=== PATIENT | female | born 1935 | race Caucasian/White ===

== ENCOUNTER 2018-04-05 07:36 | Observation (INO) ==
--- NOTE | 2018-04-05 07:56 | Emergency Department Note ---
Disposition Clinical Impression: Open wound Ankle fracture Qualifiers: Encounter type: initial encounter Fracture type: closed Laterality: right Qualified Code(s): S82.891A - Other fracture of right lower leg, initial encounter for closed fracture Knee effusion Qualifiers: Laterality: left Qualified Code(s): M25.462 - Effusion, left knee Disposition: Admitted As Inpatient Condition: Good Lower Extremity Injury HPI - General Chief Complaint: ED Extremity Injury, Lower Stated Complaint: ankle pain Time Seen by Provider: 04/05/18 07:41 Source: patient, EMS Limitations: no limitations, physical limitation Nursing Notes Reviewed: Yes Vital Signs Reviewed: Yes - History of Present Illness HPI Narrative: 82 year old female presents with fall evaluation. Patient stated she was tripped and fell from standing position yesterday afternoon in basement. Patient had to sit on the stairs for 10 minutes. Then she crawled back to upstairs. Patient stated she noticed pain in left knee and right ankle. She could only partially put weight on right leg. Patient denied hit her head. No loss of consciousness. Denied dizziness or other symptoms before the accident. Patient hit her right palacio on Tuesday. Patient followed up with her primary care physician for the wound. No complain of the wound. Pt Subjective Complaint: ankle injury Injury location: Left knee, Right ankle Onset (ago): day(s) (1) Mechanism of Injury: fall Context: fall Place: home Pain Severity: moderate Pain Scale: 6 Improves with: nothing Worsens with: weight bearing, movement Associated symptoms: Reports: able to partially bear weight - Related Data Home Medications Medication Instructions Recorded Confirmed Calcium Carbonate/Vitamin D3 1 tab PO DAILY 04/05/18 04/05/18 [Calcium 600-Vit D3 800 Tablet] Metoprolol [Lopressor] 25 mg PO BID 04/05/18 04/05/18 Multivit,Th Iron,Other Min 1 tab PO DAILY 04/05/18 04/05/18 [Therems-M] Raloxifene [Evista] 60 mg PO DAILY 04/05/18 04/05/18 Allergies Allergy/AdvReac Type Severity Reaction Status Date / Time No Known Allergies Allergy Verified 04/05/18 07:43 Constitutional: Denies: fever, chills, weakness, weight change Eyes: Denies: eye pain, eye discharge, vision change ENT ED: Denies: ear pain, throat pain, dental pain, hearing loss, epistaxis, congestion, dysphagia Cardiovascular: Denies: chest pain, palpitations, dyspnea on exertion, edema, syncope Respiratory: Denies: cough, dyspnea, wheezes, hemoptysis, stridor Gastrointestinal: Denies: abdominal pain, nausea, vomiting, diarrhea, constipation, hematemesis, melena, hematochezia Genitourinary: Denies: dysuria, frequency, hematuria, discharge Musculoskeletal: Reports: arthralgia (left knee and right ankle pain). Denies: back pain, neck pain, myalgia Integumentary: Denies: rash, abrasion, lesions Neurological: Denies: headache, weakness, numbness, paresthesias, confusion, abnormal gait, vertigo Psychiatric: Denies: anxiety, depression, suicidal thoughts, homicidal thoughts , auditory hallucinations, visual hallucinations Endocrine: Denies: fatigue Hematological/Lymphatic: Denies: easy bleeding, easy bruising Allergic/Immunologic: Denies: facial swelling, urticaria Past Medical History - Past Medical History Medical history: Reports: cancer, osteoporosis Psychiatric history: Reports: no psych history SENIOR PREMIUM AUDITOR history: Reports: no SENIOR PREMIUM AUDITOR history - Social History Smoking Status: Never smoker Smokeless Tobacco Status: No Alcohol use: Reports: none Drug use: Reports: none Physical Exam - General Limitations: physical limitation General appearance: alert, in no apparent distress - Head Head exam: atraumatic, normocephalic, normal inspection - Eye Eye exam: Present: normal appearance, PERRL, EOMI - ENT ENT exam: normal exam, normal oropharynx, mucous membranes moist - Neck Neck exam: Present: normal inspection, full ROM, trachea midline - Chest Chest inspection: Present: normal inspection, symmetric chest wall rise. Absent : tenderness - Respiratory Respiratory exam: Present: normal lung sounds bilaterally. Absent: respiratory distress, wheezes - Cardiovascular Cardiovascular exam: Present: regular rate, normal rhythm, normal heart sounds - Abdominal Exam Abdominal exam: Present: soft, Non-Tender. Absent: tenderness, distention, guarding, rebound, rigidity - Expanded Lower Extremity Exam Knee exam: Present: full ROM, tenderness, swelling. Absent: normal inspection ( left knee mild swelling, tender to palpation in anterior aspect, no limited of ROM) Ankle exam: Present: full ROM, tenderness, swelling. Absent: normal inspection (right ankle mild swelling in lateral side, tender to palpation, no limited of ROM ) Foot/toe exam: Present: normal inspection, full ROM. Absent: tenderness, swelling - Back Exam Back exam: Present: normal inspection, full ROM. Absent: tenderness - Neurological Exam Neurological exam: Present: alert, oriented X3 - Psychiatric Psychiatric exam: Present: normal affect, normal mood - Skin Skin exam: Present: warm, dry, normal color. Absent: intact (a 3x6 cm abrasion on right palacio (from tuesday), no active bleeding, no signs of infection) Course Vital Signs Temperature 97.8 F 04/05/18 07:43 Pulse Rate 87 04/05/18 07:43 Respiratory Rate 15 04/05/18 07:43 Blood Pressure 116/79 04/05/18 07:43 O2 Sat by Pulse Oximetry 100 04/05/18 07:43 Temperature 98.4 F 04/05/18 11:50 Pulse Rate 82 04/05/18 11:50 Respiratory Rate 16 04/05/18 11:50 Blood Pressure 124/74 04/05/18 11:50 O2 Sat by Pulse Oximetry 100 04/05/18 11:50 Oxygen Delivery Oxygen Delivery Room Air Procedures - Orthopedic Splinting/Casting Injury #1 Side: right Lower Extremity Injury Location: ankle Lower Extremity Immobilizer: stirrup splint Extremity Injury, Lower - MDM Narrative Medical decision making narrative: 82 year old female presents with right ankle and left knee pain after fall. Partial weight bearing on right foot. Physical exam: right ankle swelling, tender to palpation on lateral aspect, no limited of ROM; left knee mild swelling, tender to palpation, no limited of ROM, a 3x6 cm abrasion on right palacio. no active bleeding, no purulent drainage. xray: right ankle: tiny fracture in lateral malleolus, left knee: no fracture, mild effusion. Impression : ankle fracture, knee effusion, open wound. Pt will be discharged home with splint, follow up with Orthopedics Dr. Luu and wound clinic 09:40 am pt stated she lives along. She can't put weight on both legs. Discussed the case with Dr. Antonio. He recommended to admit pt for social scientist. 09:45 page hospitalist and podiatry. Spoke with hospitalist Dr. Blake . Pt is accepted. 10:[address] Luu in the phone. Dr. Luu will see the patient in the floor. Suggest an extra xray of right foot. - Differential Diagnosis Likely: sprain/strain, fracture - Lab Data Result diagrams: 04/05/18 09:48 04/05/18 09:48 Lab Results 04/05/18 04/05/18 Range/Units 09:48 09:48 WBC 6.0 (4.3-11.1) K/mcL RBC 4.17 (3.82-4.97) M/mcL Hgb 13.4 (11.5-15.4) g/dL Hct 40.1 (35.3-44.9) % MCV 96.2 (83.0-100.0) fL MCH 32.1 (28.0-33.3) pg MCHC 33.4 (31.6-35.5) g/dL RDW 13.1 (11.5-14.5) % Plt Count 197 (140-400) K/mcL MPV 9.8 (9.4-12.4) fL Immature Gran % 0.3 (0-4) % Seg Neutrophils % 75.6 % Lymphocytes % 14.3 % Monocytes % 9.0 % Eosinophils % 0.5 % Basophils % 0.3 % Neutrophils # 4.5 (1.6-8.9) K/mcL Lymphocytes # 0.9 (0.6-4.6) K/mcL Monocytes # 0.5 (0.0-1.3) K/mcL Eosinophils # 0.0 (0.0-0.6) K/mcL Basophils # 0.0 (0.0-0.2) K/mcL Sodium 138 (136-145) mEq/L Potassium 3.5 (3.5-5.1) mEq/L Chloride 105 (98-107) mEq/L Carbon Dioxide 24 (23-29) mEq/L BUN 14 (8-23) mg/dL Creatinine 0.68 (0.60-1.20) mg/dL Est GFR ( Amer) > 60 (> 60) Est GFR (Non-Af Amer) > 60 (> 60) BUN/Creatinine Ratio 21 (6-26) Glucose 104 (70-105) mg/dL Calculated Osmolality 287 (280-300) Calcium 9.0 (8.6-10.3) mg/dL Total Bilirubin 2.1 H (0.3-1.0) mg/dL AST 17 (13-39) Units/L ALT 11 (7-52) Units/L Alkaline Phosphatase 51 (34-104) Units/L Serum Total Protein 6.4 (6.4-8.9) g/dL Albumin 3.8 (3.5-5.7) g/dL Globulin 2.6 (2.4-3.5) g/dL Albumin/Globulin Ratio 1.5 (1.1-2.2) - Radiology Data Radiology results reviewed: Yes I reviewed the patient's radiology results.
[2018-04-05 10:03] LABS: Basophils % 0.3 %; Eosinophils % 0.5 %; Hematocrit 40.1 % (35.3-44.9); Hemoglobin 13.4 g/dL (11.5-15.4); Immature Granulocytes % 0.3 % (0-4); Lymphocytes # 0.9 K/mcL (0.6-4.6); Lymphocytes % 14.3 %; Mean Corpuscular HGB Conc 33.4 g/dL (31.6-35.5); Mean Corpuscular Hemoglobin 32.1 pg (28.0-33.3); Mean Corpuscular Volume 96.2 fL (83.0-100.0); Mean Platelet Volume 9.8 fL (9.4-12.4); Monocytes # 0.5 K/mcL (0.0-1.3); Neutrophils # 4.5 K/mcL (1.6-8.9); Platelet Count 197 K/mcL (140-400); Red Blood Count 4.17 M/mcL (3.82-4.97); Red Cell Distribution Width 13.1 % (11.5-14.5); Segmented Neutrophils % 75.6 %
[2018-04-05 10:23] LABS: Alanine Aminotransferase 11 Units/L (7-52); Albumin 3.8 g/dL (3.5-5.7); Albumin/Globulin Ratio 1.5 (1.1-2.2); Alkaline Phosphatase 51 Units/L (34-104); Aspartate Amino Transferase 17 Units/L (13-39); BUN/Creatinine Ratio 21 (6-26); Bilirubin,Total 2.1 mg/dL (0.3-1.0); Blood Urea Nitrogen 14 mg/dL (8-23); Carbon Dioxide 24 mEq/L (23-29); Chloride 105 mEq/L (98-107); Globulin 2.6 g/dL (2.4-3.5); Glucose 104 mg/dL (70-105); Osmolality,Calculated 287 (280-300); Potassium 3.5 mEq/L (3.5-5.1); Sodium 138 mEq/L (136-145); Total Protein 6.4 g/dL (6.4-8.9); eGFR For Non-African Americans > 60 (> 60)
[2018-04-05] MEDS ORDERED: Ibuprofen 600 MG TABLET PO ONE (10:36)
[2018-04-05] MEDS ORDERED: Naloxone 0.4 MG/ML INJ IVP PRN (12:03)
--- NOTE | 2018-04-05 12:39 | Internal Med History&Physical ---
Date of Encounter: 04/05/18 Time of Encounter: 11:00 Internal Medicine - H&P: HPI Chief complaint: Fall Admitted From: Home Plans for Post Hospital Care: Home History of present illness: Ms. Escobar is a 82 year old female present to ER for fall and right ankle and left knee pain. Past medical history is significant for breast cancer S/P surgery, colon cancer S/P surgery. Patient has mechanical fall yesterday afternoon around 4 PM. Denies loss of consciousness. Denies neck or head injury. Patient sit on her legs and complaint of right ankle pain and left knee pain. Denies other injury. Patient had right lower leg laceration on Tuesday which was managed by her PCP. In the emergency room, x-ray shows a right ankle fracture. Podiatry was counseled. Patient lives alone and cannot take care of herself at home. Patient was admitted for frequent fall, right ankle fracture. Past Med Surg Social Fam HX - Past Medical History Medical history: cancer, osteoporosis Additional medical history: breast CA, colon CA Psychiatric history: no psych history - Past Surgical History Surgical History: colectomy Additional surgical history: L mastectomy, foot surgery (torn tendon in arch) - Social History Smoking Status: Never smoker Smokeless Tobacco Status: No Alcohol use: none Drug use: none - Family History Father Living Status: Hx Family Cardiac Disorders: Yes ([place]) Mother Hx Family Neurologic Disorders: Yes (CVA x2) Hx Family Medical Disorders: Yes (bowel obstruction) Internal Medicine - H&P: Meds Calcium Carbonate/Vitamin D3 [Calcium 600-Vit D3 800 Tablet] 1 tab PO DAILY [History] Metoprolol [Lopressor] 25 mg PO BID 04/05/18 [History] Multivit,Th Iron,Other Min [Therems-M] 1 tab PO DAILY 04/05/18 [History] Raloxifene [Evista] 60 mg PO DAILY 04/05/18 [History] 3 Allergy/AdvReac Type Severity Reaction Status Date / Time No Known Allergies Allergy Verified 04/05/18 07:43 All Systems PM: A 10-system review of systems was performed and is negative for pertinent findings except as documented above in the HPI. - Constitutional Vitals: Temp Pulse Resp BP Pulse Ox 98.4 F 82 16 124/74 100 04/05/18 11:50 04/05/18 11:50 04/05/18 11:50 04/05/18 11:50 04/05/18 11:50 General appearance: Present: A&O X 3, no acute distress, answers questions appropriately - Head Head exam: Present: atraumatic, normocephalic - Eye Eye exam: Present: PERRL, conjuntiva pink, sclera anicteric Pupils: Present: PERRL - Neck Neck exam general surgery: Present: supple, trachea midline. Absent: lymphadenopathy - Respiratory Respiratory exam: Present: CTAB. Absent: accessory muscle use, rales, rhonchi, wheezes - Cardiovascular Cardiovascular exam: Present: RRR, +S1, +S2. Absent: diastolic murmur, gallop, rubs, systolic murmur - GI/Abdominal GI/Abdominal exam: Present: normal bowel sounds, soft, no peritoneal signs. Absent: distended, tenderness - Extremities Exam Extremities exam: Present: warm, radial pulses palpable and symmetrical. Absent : calf tenderness, cyanotic, pedal edema Additional comments: Mild left knee tenderness, without swelling. Right ankle was fixed with splint by ER. - Neurological Exam Neurological exam: Present: CN II-XII intact, oriented X3, no focal deficits. Absent: pronater drift, facial droop, speech deficit - Skin Skin exam: Present: dry, intact Internal Med - H&P Results - Labs CBC & Chem 7: 04/05/18 09:48 04/05/18 09:48 - Assessment and plan (1) Fall Current Visit: Yes Status: Acute Assessment and plan: Patient has frequent falls at home. Denies loss of consciousness or dizziness. Need PTOT evaluation. However, patient has right ankle fracture. Will consult podiatry first and determine PTOT evaluation after podiatry see patient. Qualifiers: Encounter type: initial encounter Qualified Code(s): W19.XXXA - Unspecified fall, initial encounter (2) DVT prophylaxis Current Visit: Yes Status: Acute Assessment and plan: Heparin subcutaneously (3) Ankle fracture Current Visit: Yes Status: Acute Assessment and plan: Splint placed by ER. Podiatry consult. Continue pain management as needed. Qualifiers: Encounter type: initial encounter Fracture type: closed Laterality: right Qualified Code(s): S82.891A - Other fracture of right lower leg, initial encounter for closed fracture (4) Knee effusion Current Visit: Yes Status: Acute Assessment and plan: Will order MRI to further evaluate left knee injury. Continue pain management. Qualifiers: Laterality: left Qualified Code(s): M25.462 - Effusion, left knee (5) Open wound Current Visit: Yes Status: Acute Assessment and plan: Patient has a laceration on right lower leg 2 days ago. Treated as outpatient by PCP. Will consult wound care for further management. - Time Spent With Patient Total time spent is greater than 50% in coordination of care (as documented) at patient's floor/unit and/or counseling patient: 30 minutes 25 - 35 minutes
--- NOTE | 2018-04-05 17:17 | Podiatry Consult Note ---
Date of Encounter: 04/05/18 Time of Encounter: 17:00 Assessment and Plan (1) Ankle fracture Status: Acute Assessment: Small fracture of the lateral talus Plan: Non operable at this time Will place patient to a short CAM boot May leave CORRIE for compression and protection May be protective weight bearing as tolerated to ankle Follow up in clinic with in 3 weeks or sooner if needed. Qualifiers: Encounter type: initial encounter Fracture type: closed Laterality: right Qualified Code(s): S82.891A - Other fracture of right lower leg, initial encounter for closed fracture (2) Open wound Status: Acute Assessment: Large skin tear of right palacio Plan: Stable- no appearance of infection. Scant bloody drainage. No probe to bone. There is slight ecchymosis surrounding wound. Edges cannot be approximated as skin is too thin. Will have to heal. No surrounding warmth, tenderness or edema. No odor Continue to cleanse as needed with saline or mild soap and water while at home Apply adaptic, 4x4 and kerlix for protection. Monitor for clinical signs of infection Call with any issues or concerns. History of Present Illness HPI: Ms. Escobar is a 82 year old female who has been consulted to us regarding her right ankle. Patient reports she fell yesterday around 3pm with her feet going under her and landing on her knees. Patient reports that her right ankle and left knee started to hurt overnight with the left knee being the worst. States she also fell on Tuesday scraping her palacio of the right leg. States she went to her PCP where she dressed it and told her stitches could not be placed and she did not need a follow up. Patient states she is worried about it "the skin is bruised and I think the bone may be bruised" Patient has a splint intact from ED to the RLE. Per imagining a small fracture of the lateral talus was noted. Patient denies any pain at this time. Past Med Surg Social Fam HX - Past Medical History Medical history: cancer, osteoporosis Additional medical history: breast CA, colon CA Psychiatric history: no psych history - Past Surgical History Surgical History: colectomy Additional surgical history: L mastectomy, foot surgery (torn tendon in arch) - Social History Smoking Status: Never smoker Smokeless Tobacco Status: No Alcohol use: none Drug use: none - Family History Father Living Status: Hx Family Cardiac Disorders: Yes ([place]) Mother Hx Family Neurologic Disorders: Yes (CVA x2) Hx Family Medical Disorders: Yes (bowel obstruction) Medications and Allergies Calcium Carbonate/Vitamin D3 [Calcium 600-Vit D3 800 Tablet] 1 tab PO DAILY [History] Metoprolol [Lopressor] 25 mg PO BID 04/05/18 [History] Multivit,Th Iron,Other Min [Therems-M] 1 tab PO DAILY 04/05/18 [History] Raloxifene [Evista] 60 mg PO DAILY 04/05/18 [History] Acetaminophen [Tylenol] 650 mg PO Q6HR PRN #30 tablet 04/08/18 [Rx] 3 Allergy/AdvReac Type Severity Reaction Status Date / Time No Known Allergies Allergy Verified 04/05/18 07:43 All Systems Reviewed: as per HPI Physical Exam - Constitutional Vitals: Temp Pulse Resp BP Pulse Ox 98.3 F 100 16 128/78 98 04/05/18 16:50 04/05/18 16:50 04/05/18 16:50 04/05/18 16:50 04/05/18 16:50 Exam: Awake, alert and oriented Pulses palpable DP/PT Warm toes to tibia Sensation intact with light touch to feet Movement intact - pain with ROM. Pain with inversion, eversion, plantar and dorsiflexion Slight edema surrounding the medial and lateral malleolus Slight ecchymosis noted No appearance of infection No obvious deformity noted- noted closed fx on imagining Large skin tear noted along anterior leg along tibia (right) [id number] Appears to be attempting scab Minimal surrounding erythema and ecchymosis No wamth No purulent drainage No appearance of infection Scant serosang drainage Results - Labs Result Diagrams: 04/06/18 05:43 04/08/18 00:55 Labs: Abnormal lab results Total Bilirubin 2.1 mg/dL (0.3-1.0) H 04/05/18 09:48 All other labs normal. Consult Discharge Plan - Plan Additional Instructions: WEIGHT BEARING TOLERATED TO RIGHT LEG WITH BOOT ON. CLEANSE THE ABRASION TO THE RIGHT LEG DAILY AND THEN REAPPLY DRESSING, SPLINT AND BOOT. PLEASE CALL YOUR PCP WITH ANY FEVER, CHILLS, DRAINAGE OR CONCERN. PLEASE ATTEND FOLLOW UP APPOINTMENTS SCHEDULED. PLEASE TAKE ALL MEDICATIONS PRESCRIBED. Referrals: Anthony Orozco CNP [Partnered Physician] - 04/10/18 8:45 am Solitario Lynn DO [Partnered Physician] - 04/11/18 11:00 am (Referral from Dr. Man - possible steroid injection left knee) Prescriptions: Acetaminophen [Tylenol] 650 mg PO Q6HR PRN #30 tablet PRN Reason: Mild Pain/Fever
[2018-04-05] MEDS: *HR* Heparin 5,000 UNIT/ML VIAL SQ SCH (18:00)
[2018-04-05] MEDS: Ketorolac 15 MG/ML VIAL IVP PRN (20:38)
[2018-04-06] MEDS: Acetaminophen 325 MG TABLET PO PRN (00:08)
[2018-04-06] MEDS ORDERED: *HR* HYDROcodone/Acet 7.5/325 mg TABLET PO ONE (01:03)
[2018-04-06] MEDS: *HR* Heparin 5,000 UNIT/ML VIAL SQ SCH ×2 (05:44→18:39)
[2018-04-06 06:51] LABS: Basophils % 0.4 %; Eosinophils # 0.1 K/mcL (0.0-0.6); Eosinophils % 1.1 %; Hematocrit 40.3 % (35.3-44.9); Hemoglobin 13.2 g/dL (11.5-15.4); Immature Granulocytes % 0.6 % (0-4); Lymphocytes # 0.9 K/mcL (0.6-4.6); Lymphocytes % 17.7 %; Mean Corpuscular HGB Conc 32.8 g/dL (31.6-35.5); Mean Corpuscular Hemoglobin 32.5 pg (28.0-33.3); Mean Corpuscular Volume 99.3 fL (83.0-100.0); Mean Platelet Volume 10.2 fL (9.4-12.4); Monocytes # 0.6 K/mcL (0.0-1.3); Monocytes % 10.8 %; Neutrophils # 3.7 K/mcL (1.6-8.9); Platelet Count 171 K/mcL (140-400); Red Blood Count 4.06 M/mcL (3.82-4.97); Red Cell Distribution Width 13.2 % (11.5-14.5); Segmented Neutrophils % 69.4 %
[2018-04-06 07:02] LABS: Alanine Aminotransferase 9 Units/L (7-52); Albumin 3.3 g/dL (3.5-5.7); Albumin/Globulin Ratio 1.2 (1.1-2.2); Alkaline Phosphatase 45 Units/L (34-104); Aspartate Amino Transferase 16 Units/L (13-39); BUN/Creatinine Ratio 20 (6-26); Bilirubin,Direct 0.4 mg/dL (0.0-0.2); Bilirubin,Indirect 1.9 mg/dL (0.0-1.2); Bilirubin,Total 2.3 mg/dL (0.3-1.0); Blood Urea Nitrogen 13 mg/dL (8-23); Calcium 8.2 mg/dL (8.6-10.3); Carbon Dioxide 23 mEq/L (23-29); Chloride 107 mEq/L (98-107); Globulin 2.7 g/dL (2.4-3.5); Glucose 96 mg/dL (70-105); Magnesium 1.9 mg/dL (1.6-2.6); Osmolality,Calculated 282 (280-300); Potassium 3.9 mEq/L (3.5-5.1); Sodium 136 mEq/L (136-145); eGFR For Non-African Americans > 60 (> 60)
--- NOTE | 2018-04-06 10:18 | Internal Med Progress Note ---
Hospitalist Progress Note - Encounter Date of Encounter: 04/06/18 Time of Encounter: 10:20 - Exam Vitals: Temp Pulse Resp BP Pulse Ox 98.5 F 90 16 110/73 95 04/06/18 07:26 04/06/18 07:26 04/06/18 07:26 04/06/18 07:26 04/06/18 07:26 Exam: Gen. NAD Head. Atraumtic. Normocephalic CVs. s1 s2 WNL Resp. CTAB GI. soft, +Bs Ext. Right ankle CAM boot in place Neuro. GCS 15 - Assessment and Plan (1) Ankle fracture Current Visit: Yes Status: Acute Assessment and Plan: Splint placed by ER. Seen by podiatry. CAM boot placed and recommend outpatient follow up as patient has a talus fracture that is inoperable at this time. Continue pain management as needed. Will obtain physical therapy assessment for discharge planning (2) Knee effusion Current Visit: Yes Status: Acute Assessment and Plan: Will order MRI to further evaluate left knee injury. Continue pain management. (3) Open wound Current Visit: Yes Status: Acute Assessment and Plan: Patient has a laceration on right lower leg 2 days ago. Treated as outpatient by PCP. Will consult wound care for further management. (4) Fall Current Visit: Yes Status: Acute Assessment and Plan: Patient has frequent falls at home. Denies loss of consciousness or dizziness. Need PTOT evaluation. However, patient has right ankle fracture. Will consult podiatry first and determine PTOT evaluation after podiatry see patient. (5) DVT prophylaxis Current Visit: Yes Status: Acute Assessment and Plan: Heparin subcutaneously - Time Spent with Patient Total time spent is greater than 50% in coordination of care (as documented) at patient's floor/unit and/or counseling patient: Internal Medicine: Result - Labs CBC & Chem 7: 04/06/18 05:43 04/06/18 05:43 Labs: Short CBC 04/06/18 Range/Units 05:43 WBC 5.3 (4.3-11.1) K/mcL Hgb 13.2 (11.5-15.4) g/dL Hct 40.3 (35.3-44.9) % Plt Count 171 (140-400) K/mcL Neutrophils # 3.7 (1.6-8.9) K/mcL BMP 04/06/18 05:43 Sodium 136 Potassium 3.9 Chloride 107 Carbon Dioxide 23 BUN 13 Creatinine 0.64 Glucose 96 Calcium 8.2 L Liver Function 04/06/18 Range/Units 05:43 Total Bilirubin 2.3 H (0.3-1.0) mg/dL Direct Bilirubin 0.4 H (0.0-0.2) mg/dL AST 16 (13-39) Units/L ALT 9 (7-52) Units/L Alkaline Phosphatase 45 (34-104) Units/L Albumin 3.3 L (3.5-5.7) g/dL - Impressions Impressions Knee MRI 04/05/18 12:02 IMPRESSION: 1. No acute osseous abnormality 2. 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 3. Large complex tear of the body and anterior horn of the lateral meniscus with extrusion of the body. 4. Intrasubstance signal in the body of the medial meniscus indeterminate for a tear given the chondrocalcinosis demonstrated on the concurrent radiographs. 5. Large joint effusion and large multilobular ganglion posterior to the joint space. D/ / Jarod eBrg MD / Jarod Berg MD Interpreting Provider: Jarod Berg MD Consult Discharge Plan - Plan Referrals: Kalyan Hinton DO [Primary Care Provider] - (1) Ankle fracture Qualifiers: Encounter type: initial encounter Fracture type: closed Laterality: right Qualified Code(s): S82.891A - Other fracture of right lower leg, initial encounter for closed fracture (2) Knee effusion Qualifiers: Laterality: left Qualified Code(s): M25.462 - Effusion, left knee (4) Fall Qualifiers: Encounter type: initial encounter Qualified Code(s): W19.XXXA - Unspecified fall, initial encounter
[2018-04-06] MEDS: Ketorolac 15 MG/ML VIAL IVP PRN (23:25)
[2018-04-07] MEDS: *HR* Heparin 5,000 UNIT/ML VIAL SQ SCH ×2 (05:26→17:30)
--- NOTE | 2018-04-07 10:37 | Internal Med Progress Note ---
Hospitalist Progress Note - Encounter Date of Encounter: 04/07/18 Time of Encounter: 10:30 - Subjective Interval History: No acute events overnight - Exam Vitals: Temp Pulse Resp BP Pulse Ox 98.5 F 87 16 118/64 95 04/07/18 06:39 04/07/18 06:39 04/07/18 06:39 04/07/18 06:39 04/07/18 06:39 Exam: Gen. NAD Head. Atraumtic. Normocephalic CVs. s1 s2 WNL Resp. CTAB GI. soft, +Bs Ext. Right ankle CAM boot in place Neuro. GCS 15 - Assessment and Plan (1) Ankle fracture Current Visit: Yes Status: Acute Assessment and Plan: Splint placed by ER. Seen by podiatry. CAM boot placed and recommend outpatient follow up as patient has a talus fracture that is inoperable at this time. Continue pain management as needed. Will obtain physical therapy assessment for discharge planning (2) Meniscal injury Current Visit: Yes Status: Acute Assessment and Plan: Knee MRI shows Large complex tear of the body and anterior horn of the lateral meniscus with extrusion of the body. Will obtain orthopedic surgery consult and follow recommendations (3) Knee effusion Current Visit: Yes Status: Acute Assessment and Plan: Will order MRI to further evaluate left knee injury. Continue pain management. (4) Open wound Current Visit: Yes Status: Acute Assessment and Plan: Patient has a laceration on right lower leg 2 days ago. Treated as outpatient by PCP. Will consult wound care for further management. (5) Fall Current Visit: Yes Status: Acute Assessment and Plan: Patient has frequent falls at home. Denies loss of consciousness or dizziness. Need PTOT evaluation. However, patient has right ankle fracture. Will consult podiatry first and determine PTOT evaluation after podiatry see patient. (6) DVT prophylaxis Current Visit: Yes Status: Acute Assessment and Plan: Heparin subcutaneously - Time Spent with Patient Total time spent is greater than 50% in coordination of care (as documented) at patient's floor/unit and/or counseling patient: Internal Medicine: Result - Labs CBC & Chem 7: 04/06/18 05:43 04/06/18 05:43 Consult Discharge Plan - Plan Referrals: Anthony Orozco CNP [Partnered Physician] - 04/10/18 8:45 am Solitario Lynn DO [Partnered Physician] - 04/11/18 11:00 am (Referral from Dr. Man - possible steroid injection left knee) (1) Ankle fracture Qualifiers: Encounter type: initial encounter Fracture type: closed Laterality: right Qualified Code(s): S82.891A - Other fracture of right lower leg, initial encounter for closed fracture (3) Knee effusion Qualifiers: Laterality: left Qualified Code(s): M25.462 - Effusion, left knee (5) Fall Qualifiers: Encounter type: initial encounter Qualified Code(s): W19.XXXA - Unspecified fall, initial encounter
--- NOTE | 2018-04-07 14:50 | Orthopedic Consult Note ---
Date of Encounter: 04/07/18 Time of Encounter: 14:48 Assessment and Plan (1) Ankle fracture Current Visit: Yes Status: Acute Qualifiers: Encounter type: initial encounter Fracture type: closed Laterality: right Qualified Code(s): S82.891A - Other fracture of right lower leg, initial encounter for closed fracture (2) Open wound Current Visit: Yes Status: Acute (3) Knee effusion Current Visit: Yes Status: Acute The patient has end-stage arthritis of the left knee. The meniscus tear seen on the MRI is clinically irrelevant given the significant arthritic change. I did have a long discussion with the patient regarding her diagnosis. My recommendation is for oral anti-inflammatories if able from a medical standpoint. She is orthopedically stable for discharge regarding the left knee. Activities as tolerated. She can follow up with one of our sports medicine physicians at [facility] upon discharge to schedule a steroid injection. I will be available as needed for any new concerns. Qualifiers: Laterality: left Qualified Code(s): M25.462 - Effusion, left knee History of Present Illness HPI: Ms. Escobar is a 82 year old female. The patient had 2 injuries, one on Tuesday and 1 on Tuesday night. She twisted her right ankle and her left knee. She came to the emergency department on Tuesday and was admitted due to painful arthritis of the left knee as well as an ankle sprain equivalent on the right ankle because she lives alone. Patient complains of isolated pain to the left knee and the right ankle. Podiatry and evaluated the right ankle and placed the patient in a walking boot. I was consulted to evaluate the left knee after x-ray showed end-stage arthritis and an MRI demonstrated a meniscus tear. Pain has been improving in both locations. Symptoms are worse with movement and use and better with rest. No numbness, tingling, or any other associated signs or symptoms or modifying factors. She has been working to get home health care set up. Past Med Surg Social Fam HX - Past Medical History Medical history: cancer, osteoporosis Additional medical history: breast CA, colon CA Psychiatric history: no psych history - Past Surgical History Surgical History: colectomy Additional surgical history: L mastectomy, foot surgery (torn tendon in arch) - Social History Smoking Status: Never smoker Smokeless Tobacco Status: No Alcohol use: none Drug use: none - Family History Father Living Status: Hx Family Cardiac Disorders: Yes ([place]) Mother Hx Family Neurologic Disorders: Yes (CVA x2) Hx Family Medical Disorders: Yes (bowel obstruction) Medications and Allergies Calcium Carbonate/Vitamin D3 [Calcium 600-Vit D3 800 Tablet] 1 tab PO DAILY [History] Metoprolol [Lopressor] 25 mg PO BID 04/05/18 [History] Multivit,Th Iron,Other Min [Therems-M] 1 tab PO DAILY 04/05/18 [History] Raloxifene [Evista] 60 mg PO DAILY 04/05/18 [History] 3 Allergy/AdvReac Type Severity Reaction Status Date / Time No Known Allergies Allergy Verified 04/05/18 07:43 All Systems Reviewed: Constitutional and musculoskeletal systems were reviewed and are negative unless otherwise stated in history of present illness. Physical Exam - Constitutional Vitals: Temp Pulse Resp BP Pulse Ox 98.1 F 93 16 121/57 96 04/07/18 10:54 04/07/18 10:54 04/07/18 10:54 04/07/18 10:54 04/07/18 10:54 Constitutional -Vitals reviewed -The patient is well developed and well nourished. -Mood is pleasant. -The patient is well groomed. Psychiatric -The patient is fully alert and oriented x 3. Respiratory: -Respiratory effort normal Abdomen: -Soft abdomen -Non tender -Non distended: Left upper extremity: -No deformities. The overlying skin is intact. No obvious signs of acute trauma. -No tenderness to palpation throughout. -No significant pain with passive motion of the shoulder, elbow, wrist, and fingers within the limits of the bed. -Able to make an "OK" sign, cross the index and long fingers, and extend the thumb. -Sensation grossly intact to light touch throughout the median, radial, and ulnar distributions. -Radial pulse is present; Fingers have good capillary refill. Right upper extremity: -No deformities. The overlying skin is intact. No obvious signs of acute trauma. -No tenderness to palpation throughout. -No significant pain with passive motion of the shoulder, elbow, wrist, and fingers within the limits of the bed. -Able to make an "OK" sign, cross the index and long fingers, and extend the thumb. -Sensation grossly intact to light touch throughout the median, radial, and ulnar distributions. -Radial pulse is present; Fingers have good capillary refill. Left lower extremity: -No deformities. The overlying skin is intact. No obvious signs of acute trauma. -Moderate swelling to the knee with mild diffuse tenderness to palpation throughout. -I can range the knee from 0-90 degrees without significant pain. No instability is noted. -No pain with passive motion of the hip, ankle, and toes within the limits of the bed. -No pain with axial loading of the thigh. -Able to dorsiflex and plantarflex the ankle and toes. -Sensation is grossly intact to light touch throughout the sural, saphenous, superficial peroneal, and deep peroneal distributions. -Toes have good capillary refill. Right lower extremity: -Walking boot in place which was not taken down. -No pain with axial loading of the thigh. Diagnostic Imaging: I did personally review and interpret the x-ray and MRI of the left knee which shows end-stage arthritis, particularly laterally. Results - Labs Result Diagrams: 04/06/18 05:43 04/06/18 05:43 Labs: Abnormal lab results Calcium 8.2 mg/dL (8.6-10.3) L 04/06/18 05:43 Total Bilirubin 2.3 mg/dL (0.3-1.0) H 04/06/18 05:43 Direct Bilirubin 0.4 mg/dL (0.0-0.2) H 04/06/18 05:43 Indirect Bilirubin 1.9 mg/dL (0.0-1.2) H 04/06/18 05:43 Serum Total Protein 6.0 g/dL (6.4-8.9) L 04/06/18 05:43 Albumin 3.3 g/dL (3.5-5.7) L 04/06/18 05:43 All other labs normal. Consult Discharge Plan - Plan Referrals: Kalyan Hinton DO [Primary Care Provider] -
[2018-04-07] MEDS: Acetaminophen 325 MG TABLET PO PRN (17:34)
[2018-04-07] MEDS: Ketorolac 15 MG/ML VIAL IVP PRN (21:05)
[2018-04-08 01:44] LABS: BUN/Creatinine Ratio 28 (6-26); Blood Urea Nitrogen 21 mg/dL (8-23); Calcium 8.4 mg/dL (8.6-10.3); Carbon Dioxide 24 mEq/L (23-29); Chloride 104 mEq/L (98-107); Glucose 98 mg/dL (70-105); Osmolality,Calculated 279 (280-300); Potassium 4.1 mEq/L (3.5-5.1); Sodium 133 mEq/L (136-145); eGFR For Non-African Americans > 60 (> 60)
[2018-04-08] MEDS: *HR* Heparin 5,000 UNIT/ML VIAL SQ SCH (05:12)
--- NOTE | 2018-04-08 10:04 | Discharge Summary ---
Date of Encounter: 04/08/18 Time of Encounter: 10:00 - Discharge Diagnosis (1) Ankle fracture Priority: Primary Status: Acute Assessment and Plan: Ms. Escobar is a 82 year old female present to ER for fall and right ankle and left knee pain. Past medical history is significant for breast cancer S/P surgery, colon cancer S/P surgery. Patient had a mechanical fall on admission. Denied loss of consciousness. Denied neck or head injury. In the emergency room, x-ray showed a right ankle fracture. She was seen by podiatry and had CAM boot placed and recommended outpatient follow up as patient had a talus fracture that was deemed inoperable. She was also noted to have left knee pain and had a knee xray and knee MRI done showing a large complex tear of the body and anterior horn of the lateral meniscus with extrusion of the body. She was seen by orthopedic surgery who recommended outpatient follow up PT saw her and recommended discharge to rehab, but due to significant out of pocket costs and feeling better, she decided she would go home instead. She was discharged home in a stable condition Qualifiers: Encounter type: initial encounter Fracture type: closed Laterality: right Qualified Code(s): S82.891A - Other fracture of right lower leg, initial encounter for closed fracture (2) Meniscal injury Priority: Secondary Status: Acute Assessment and Plan: Knee MRI shows Large complex tear of the body and anterior horn of the lateral meniscus with extrusion of the body. Will obtain orthopedic surgery consult and follow recommendations Qualifiers: Qualified Code(s): S83.8X2A - Sprain of other specified parts of left knee, initial encounter (3) Knee effusion Priority: Secondary Status: Acute Qualifiers: Laterality: left Qualified Code(s): M25.462 - Effusion, left knee (4) Open wound Priority: Secondary Status: Acute (5) Fall Priority: Secondary Status: Acute Qualifiers: Encounter type: initial encounter Qualified Code(s): W19.XXXA - Unspecified fall, initial encounter (6) DVT prophylaxis Priority: Secondary Status: Acute Hospital course: Ms. Escobar is a 82 year old female - Time Spent with Patient Total time spent providing and/or coordinating discharge services: - Discharge Medications Prescriptions: Acetaminophen [Tylenol] 650 mg PO Q6HR PRN #30 tablet PRN Reason: Mild Pain/Fever Home Medications: Calcium Carbonate/Vitamin D3 [Calcium 600-Vit D3 800 Tablet] 1 tab PO DAILY [History] Metoprolol [Lopressor] 25 mg PO BID 04/05/18 [History] Multivit,Th Iron,Other Min [Therems-M] 1 tab PO DAILY 04/05/18 [History] Raloxifene [Evista] 60 mg PO DAILY 04/05/18 [History] Acetaminophen [Tylenol] 650 mg PO Q6HR PRN #30 tablet 04/08/18 [Rx] Allergies/Adverse Reactions: 3 Allergy/AdvReac Type Severity Reaction Status Date / Time No Known Allergies Allergy Verified 04/05/18 07:43 Date of admission: 04/05/18 10:40 Primary care physician: Kalyan Hinton Consults: 04/05/18 12:07 Consult to Internal Specialist [CONS] Routine Reason for SW Consult: May need rehab discharge 04/05/18 12:41 Consult to Wound Care [CONS] Routine Reason for Consult: Right lower extremity laceration Call Completed: No 04/06/18 10:15 Consult to Physical Therapy [CONS] Routine Comment: Evaluate, develop and implement POC Reason for Consult: frequent falls Does patient have active BEDREST order?: No Is patient medically & hemodynamically stable?: No Patient assessed for mobility or mobilized this visit?: No 04/06/18 10:26 Consult to Occupational Therapy [CONS] Routine Comment: Evaluate, develop and implement POC Reason for Consult: DISCHARGE PLANNING Does patient have active BEDREST order?: No Is patient medically & hemodynamically stable?: Yes 04/07/18 10:43 Consult to Orthopedic Surgery [CONS] Routine Consulting Provider: [facility] Reason for Consult: meniscal tear Call Completed: Yes - Constitutional Vitals: Temp Pulse Resp BP Pulse Ox 98.2 F 61 16 143/77 98 04/08/18 07:07 04/08/18 07:07 04/08/18 07:07 04/08/18 07:07 04/08/18 07:07 General appearance: Present: A&O X 3, no acute distress, answers questions appropriately - Head Head exam: Present: atraumatic, normocephalic - Eye Eye exam: Present: PERRL, conjuntiva pink, sclera anicteric Pupils: Present: PERRL - Neck Neck exam general surgery: Present: supple, trachea midline. Absent: lymphadenopathy - Respiratory Respiratory exam: Present: CTAB. Absent: accessory muscle use, rales, rhonchi, wheezes - Cardiovascular Cardiovascular exam: Present: RRR, +S1, +S2. Absent: diastolic murmur, gallop, rubs, systolic murmur - GI/Abdominal GI/Abdominal exam: Present: normal bowel sounds, soft, no peritoneal signs. Absent: distended, tenderness - Extremities Exam Extremities exam: Present: warm, radial pulses palpable and symmetrical. Absent : calf tenderness, cyanotic, pedal edema - Neurological Exam Neurological exam: Present: CN II-XII intact, oriented X3, no focal deficits. Absent: pronater drift, facial droop, speech deficit - Skin Skin exam: Present: dry, intact - Patient Status Disposition: Home, Self-Care Condition: Good - Discharge Instructions Follow Up With: Anthony Orozco CNP [Partnered Physician] - 04/10/18 8:45 am Solitario Lynn DO [Partnered Physician] - 04/11/18 11:00 am (Referral from Dr. Man - possible steroid injection left knee) Additional Instructions: WEIGHT BEARING TOLERATED TO RIGHT LEG WITH BOOT ON. CLEANSE THE ABRASION TO THE RIGHT LEG DAILY AND THEN REAPPLY DRESSING, SPLINT AND BOOT. PLEASE CALL YOUR PCP WITH ANY FEVER, CHILLS, DRAINAGE OR CONCERN. PLEASE ATTEND FOLLOW UP APPOINTMENTS SCHEDULED. PLEASE TAKE ALL MEDICATIONS PRESCRIBED.
[2018-04-08 11:19] VITALS: BP 103/60
--- NOTE | 2018-04-08 12:19 | Physician Discharge Referral ---
Home Health/Hosp Referral Info Transfer to: Home Health - Diagnosis (1) Ankle fracture Priority: Primary Status: Acute (2) Meniscal injury Priority: Secondary Status: Acute (3) Knee effusion Priority: Secondary Status: Acute (4) Open wound Priority: Secondary Status: Acute (5) Fall Priority: Secondary Status: Acute (6) DVT prophylaxis Priority: Secondary Status: Acute - Respiratory Orders Smoking Cessation: Smoking cessation has been advised. For more information, call the [place] Tobacco Quit Line at 6-187-HSPA-NOW. - Diet/Nutrition Diet/Nutrition Orders: Cardiac - Activity Activity Orders: Ambulate - Services Needed Following services are medically necessary services: Nursing, Home Health Aide, Physical Therapy Other Treatments: Wound care. Will need daily wound checks and non adhesive dressing changes - Transfer Medications Prescriptions: Acetaminophen [Tylenol] 650 mg PO Q6HR PRN #30 tablet PRN Reason: Mild Pain/Fever Home Medications: Calcium Carbonate/Vitamin D3 [Calcium 600-Vit D3 800 Tablet] 1 tab PO DAILY [History] Metoprolol [Lopressor] 25 mg PO BID 04/05/18 [History] Multivit,Th Iron,Other Min [Therems-M] 1 tab PO DAILY 04/05/18 [History] Raloxifene [Evista] 60 mg PO DAILY 04/05/18 [History] Acetaminophen [Tylenol] 650 mg PO Q6HR PRN #30 tablet 04/08/18 [Rx] Allergies/Adverse Reactions: 3 Allergy/AdvReac Type Severity Reaction Status Date / Time No Known Allergies Allergy Verified 04/05/18 07:43 Certification: Further, I certify that my clinical findings support that this patient is homebound (i.e. absences from home require considerable and taxing effort and are for medical reasons or moravian services or infrequently or short duration when for other reasons) because: Homebound Reason: Patient requires assistance of a person or device to safely leave home Attestation: My signature below is to certify that this patient is under my care and that I, or nurse practitioner, or a physician's virtual office assistant working with me, has a face-to -face encounter with this patient.
== END 2018-04-08 18:00 | disposition home or self-care (01) ==
LOC: EMEROOARM 07:36 → 3NENU 07:36
PROVIDERS: ADMIT Internal Medicine; ATTEND Internal Medicine

== ENCOUNTER 2019-02-09 16:09 | Inpatient (IN) ==
[2019-02-09 17:34] LABS: Basophils % 0.4 %; Eosinophils # 0.1 K/mcL (0.0-0.6); Eosinophils % 1.6 %; Hematocrit 36.1 % (35.3-44.9); Immature Granulocytes % 0.4 % (0-4); Lymphocytes # 0.9 K/mcL (0.6-4.6); Lymphocytes % 16.6 %; Mean Corpuscular HGB Conc 31.6 g/dL (31.6-35.5); Mean Corpuscular Hemoglobin 30.3 pg (28.0-33.3); Mean Platelet Volume 9.5 fL (9.4-12.4); Monocytes # 0.5 K/mcL (0.0-1.3); Neutrophils # 3.7 K/mcL (1.6-8.9); Platelet Count 234 K/mcL (140-400); Red Blood Count 3.76 M/mcL (3.82-4.97); Red Cell Distribution Width 13.2 % (11.5-14.5); White Blood Count 5.1 K/mcL (4.3-11.1)
[2019-02-09 17:35] LABS: Hemoglobin 11.4 g/dL (11.5-15.4)
[2019-02-09 17:54] LABS: BUN/Creatinine Ratio 24 (6-26); Blood Urea Nitrogen 21 mg/dL (8-23); C-Reactive Protein < 5 mg/L (Less than 10); Calcium 9.2 mg/dL (8.6-10.3); Carbon Dioxide 30 mEq/L (23-29); Chloride 99 mEq/L (98-107); Glucose 111 mg/dL (70-105); Osmolality,Calculated 286 (280-300); Potassium 3.8 mEq/L (3.5-5.1); Sodium 136 mEq/L (136-145); eGFR For African Americans > 60 (> 60); eGFR For Non-African Americans > 60 (> 60)
--- NOTE | 2019-02-09 18:11 | Emergency Department Note ---
Disposition Clinical Impression: Cellulitis Qualifiers: Site of cellulitis: extremity Site of cellulitis of extremity: lower extremity Laterality: left Qualified Code(s): L03.116 - Cellulitis of left lower limb Disposition: Admitted As Inpatient Referrals: Kalyan Hinton DO [Primary Care Provider] - Time of Disposition: 19:39 General Adult HPI - General Chief complaint: ED Extremity Injury, Lower Stated complaint: LLE Injury Time Seen by Provider: 02/09/19 16:18 Source: patient, EMS Mode of arrival: EMS Limitations: no limitations Nursing Notes Reviewed: Yes Vital Signs Reviewed: Yes - History of Present Illness HPI Narrative: 83 yo female with recent left knee replacement done in October by Dr. Motley presents to emergency department with acute worsening in her left knee swelling and redness to her left leg. Patient has been on 4 separate antibiotics in the past 3 months for associated infections of the skin and joint, currently taking Keflex. She saw Dr. Motley 2 days ago and he told her that he will be getting a bone scan to look for signs of infection in the future but he was not worried about acute infection of the joint space at this time. Patient denies fevers, nausea and vomiting, abdominal pain, pain to the back of her leg at this time. She has never had a blood clot before. The pain is severe enough that she can now no longer place any weight on the left lower extremity due to the swelling in her knee. Pain Scale: 6 - Related Data Home Medications Medication Instructions Recorded Confirmed Calcium Carbonate/Vitamin D3 1 tab PO DAILY 04/05/18 10/23/18 [Calcium 600-Vit D3 800 Tablet] Multivit,Th Iron,Other Min 1 tab PO DAILY 04/05/18 10/23/18 [Therems-M] Raloxifene [Evista] 60 mg PO DAILY 04/05/18 10/23/18 Biotin 1 mg PO DAILY 10/16/18 10/23/18 Glucosamine Sulfate Dipot Chlr 1,000 mg PO DAILY 10/16/18 10/23/18 [Glucosamine] Lysine HCl [l-Lysine] 500 mg PO DAILY 10/16/18 10/23/18 Metoprolol Tartrate [Lopressor] 25 mg PO BID 10/26/18 10/26/18 Previous Rx's Medication Instructions Recorded Acetaminophen [Tylenol] 650 mg PO Q6HR PRN #30 tablet 04/08/18 Allergies Allergy/AdvReac Type Severity Reaction Status Date / Time No Known Allergies Allergy Verified 10/16/18 12:00 All systems ED: reviewed and negative except as stated. Review of Systems: As Per HPI Constitutional: Denies: fever, weakness Cardiovascular: Denies: chest pain, palpitations, dyspnea on exertion Respiratory: Denies: cough, dyspnea, wheezes Gastrointestinal: Denies: abdominal pain, nausea, vomiting Genitourinary: Denies: dysuria Musculoskeletal: Reports: joint swelling. Denies: back pain, neck pain Integumentary: Denies: rash Neurological: Denies: headache Endocrine: Denies: fatigue Past Medical History - Past Medical History Attestation: Yes The following information was validated with the patient. Source: patient Medical history: Reports: cancer, osteoporosis Surgical history: Reports: colectomy Psychiatric history: Reports: no psych history TITLE INSURANCE AGENT history: Reports: no TITLE INSURANCE AGENT history - Social History Smoking Status: Never smoker Smokeless Tobacco Status: No Alcohol use: Reports: none Drug use: Reports: none Physical Exam - General Limitations: no limitations General appearance: alert, in no apparent distress - Head Head exam: atraumatic, normocephalic - Eye Eye exam: Present: normal appearance, EOMI - ENT ENT exam: normal exam, normal oropharynx - Neck Neck exam: Present: normal inspection. Absent: tenderness, lymphadenopathy - Chest Chest inspection: Present: normal inspection. Absent: tenderness - Respiratory Respiratory exam: Present: normal lung sounds bilaterally. Absent: wheezes - Cardiovascular Cardiovascular exam: Present: regular rate, normal rhythm - Abdominal Exam Abdominal exam: Present: soft, Non-Tender. Absent: distention, guarding, rebound, rigidity - Extremities Exam Extremities exam: Present: tenderness, pedal edema, joint swelling, other (Erythema overlying left anterior tibia that is warm to touch) - Neurological Exam Neurological exam: Present: alert, oriented X3 - Psychiatric Psychiatric exam: Present: normal affect, normal mood - Skin Skin exam: Present: warm, dry, intact Course Vital Signs Temperature 98.0 F 02/09/19 16:10 Pulse Rate 77 02/09/19 16:10 Respiratory Rate 16 02/09/19 16:10 Blood Pressure 135/75 02/09/19 16:10 O2 Sat by Pulse Oximetry 99 02/09/19 16:10 Temperature 99.0 F 02/09/19 22:02 Pulse Rate 99 02/09/19 22:02 Respiratory Rate 18 02/09/19 22:02 Blood Pressure 154/70 02/09/19 22:02 O2 Sat by Pulse Oximetry 97 02/09/19 22:02 Oxygen Delivery Oxygen Delivery Room Air Medical Decision Making - MDM Narrative Medical decision making narrative: Patient presents with acute redness and warmth and increased swelling of her left knee after a surgical procedure done in October. We will obtain basic labs, x-ray of the knee and ultrasound of the leg to rule out DVT. 1899-patient's lab work including inflammatory markers are within normal limits. X-ray shows a small effusion with overlying soft tissue edema. Ultrasound of the leg was negative for DVT. 1914 - Spoke with Dr. Alfredo who will consult with Dr. Motley to determine what the plan for this patient is and then will call back with an update. 1934 - Spoke with Dr. oMtley who saw the patient two days ago. He recommends 2 days of IV antibiotics to calm the likely cellulitis down and for further monitoring of the patient. Patient is agreeable with admission at this time. Spoke with Dr. Nguyen who has accepted the patient to hospital. - Medical Records Medical records reviewed: Yes I reviewed the patient's medical records. - Lab Data Lab results reviewed: Yes I reviewed the patient's lab results. Result diagrams: 02/09/19 17:15 02/09/19 17:15 Lab Results 02/09/19 02/09/19 02/09/19 Range/Units 17:15 17:15 17:15 WBC 5.1 (4.3-11.1) K/mcL RBC 3.76 L (3.82-4.97) M/mcL Hgb 11.4 L D (11.5-15.4) g/dL Hct 36.1 (35.3-44.9) % MCV 96.0 (83.0-100.0) fL MCH 30.3 (28.0-33.3) pg MCHC 31.6 (31.6-35.5) g/dL RDW 13.2 (11.5-14.5) % Plt Count 234 (140-400) K/mcL MPV 9.5 (9.4-12.4) fL Immature Gran % 0.4 (0-4) % Seg Neutrophils % 72.0 % Lymphocytes % 16.6 % Monocytes % 9.0 % Eosinophils % 1.6 % Basophils % 0.4 % Neutrophils # 3.7 (1.6-8.9) K/mcL Lymphocytes # 0.9 (0.6-4.6) K/mcL Monocytes # 0.5 (0.0-1.3) K/mcL Eosinophils # 0.1 (0.0-0.6) K/mcL Basophils # 0.0 (0.0-0.2) K/mcL ESR 11 (0-15) mm/hr Sodium 136 (136-145) mEq/L Potassium 3.8 (3.5-5.1) mEq/L Chloride 99 (98-107) mEq/L Carbon Dioxide 30 H (23-29) mEq/L BUN 21 (8-23) mg/dL Creatinine 0.87 (0.60-1.20) mg/dL Est GFR ( Amer) > 60 (> 60) Est GFR (Non-Af Amer) > 60 (> 60) BUN/Creatinine Ratio 24 (6-26) Glucose 111 H (70-105) mg/dL Calculated Osmolality 286 (280-300) Calcium 9.2 (8.6-10.3) mg/dL C-Reactive Protein < 5 (Less than 10) mg/L - Radiology Data Radiology results reviewed: Yes I reviewed the patient's radiology results.
--- NOTE | 2019-02-09 20:22 | Emergency Department Note ---
Disposition Clinical Impression: Cellulitis Qualifiers: Site of cellulitis: extremity Site of cellulitis of extremity: lower extremity Laterality: left Qualified Code(s): L03.116 - Cellulitis of left lower limb Disposition: Admitted As Inpatient Time of Disposition: 19:40 General Adult HPI - General Chief complaint: ED Extremity Injury, Lower Stated complaint: LLE Injury Time Seen by Provider: 02/09/19 16:18 Source: patient, EMS Mode of arrival: EMS Limitations: no limitations - History of Present Illness Pain Scale: 6 - Related Data Home Medications Medication Instructions Recorded Confirmed Calcium Carbonate/Vitamin D3 1 tab PO DAILY 04/05/18 10/23/18 [Calcium 600-Vit D3 800 Tablet] Multivit,Th Iron,Other Min 1 tab PO DAILY 04/05/18 10/23/18 [Therems-M] Raloxifene [Evista] 60 mg PO DAILY 04/05/18 10/23/18 Biotin 1 mg PO DAILY 10/16/18 10/23/18 Glucosamine Sulfate Dipot Chlr 1,000 mg PO DAILY 10/16/18 10/23/18 [Glucosamine] Lysine HCl [l-Lysine] 500 mg PO DAILY 10/16/18 10/23/18 Metoprolol Tartrate [Lopressor] 25 mg PO BID 10/26/18 10/26/18 Previous Rx's Medication Instructions Recorded Acetaminophen [Tylenol] 650 mg PO Q6HR PRN #30 tablet 04/08/18 Allergies Allergy/AdvReac Type Severity Reaction Status Date / Time No Known Allergies Allergy Verified 10/16/18 12:00 Constitutional: Denies: fever, weakness Cardiovascular: Denies: chest pain, palpitations, dyspnea on exertion Respiratory: Denies: cough, dyspnea, wheezes Gastrointestinal: Denies: abdominal pain, nausea, vomiting Genitourinary: Denies: dysuria Musculoskeletal: Reports: joint swelling. 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 - Social History Smoking Status: Never smoker Smokeless Tobacco Status: No Alcohol use: Reports: none Drug use: Reports: none Physical Exam - General Limitations: no limitations General appearance: alert, in no apparent distress Course Vital Signs Temperature 98.0 F 02/09/19 16:10 Pulse Rate 77 02/09/19 16:10 Respiratory Rate 16 02/09/19 16:10 Blood Pressure 135/75 02/09/19 16:10 O2 Sat by Pulse Oximetry 99 02/09/19 16:10 Temperature 98.0 F 02/09/19 16:10 Pulse Rate 77 02/09/19 16:10 Respiratory Rate 16 02/09/19 16:10 Blood Pressure 135/75 02/09/19 16:10 O2 Sat by Pulse Oximetry 99 02/09/19 16:10 Oxygen Delivery Oxygen Delivery Room Air Medical Decision Making - Lab Data Result diagrams: 02/09/19 17:15 02/09/19 17:15 Lab Results 02/09/19 02/09/19 02/09/19 Range/Units 17:15 17:15 17:15 WBC 5.1 (4.3-11.1) K/mcL RBC 3.76 L (3.82-4.97) M/mcL Hgb 11.4 L D (11.5-15.4) g/dL Hct 36.1 (35.3-44.9) % MCV 96.0 (83.0-100.0) fL MCH 30.3 (28.0-33.3) pg MCHC 31.6 (31.6-35.5) g/dL RDW 13.2 (11.5-14.5) % Plt Count 234 (140-400) K/mcL MPV 9.5 (9.4-12.4) fL Immature Gran % 0.4 (0-4) % Seg Neutrophils % 72.0 % Lymphocytes % 16.6 % Monocytes % 9.0 % Eosinophils % 1.6 % Basophils % 0.4 % Neutrophils # 3.7 (1.6-8.9) K/mcL Lymphocytes # 0.9 (0.6-4.6) K/mcL Monocytes # 0.5 (0.0-1.3) K/mcL Eosinophils # 0.1 (0.0-0.6) K/mcL Basophils # 0.0 (0.0-0.2) K/mcL ESR 11 (0-15) mm/hr Sodium 136 (136-145) mEq/L Potassium 3.8 (3.5-5.1) mEq/L Chloride 99 (98-107) mEq/L Carbon Dioxide 30 H (23-29) mEq/L BUN 21 (8-23) mg/dL Creatinine 0.87 (0.60-1.20) mg/dL Est GFR ( Amer) > 60 (> 60) Est GFR (Non-Af Amer) > 60 (> 60) BUN/Creatinine Ratio 24 (6-26) Glucose 111 H (70-105) mg/dL Calculated Osmolality 286 (280-300) Calcium 9.2 (8.6-10.3) mg/dL C-Reactive Protein < 5 (Less than 10) mg/L Attestation Statement - Attestation Attestation: I examined this patient and my medical decision-making was reviewed with the Resident Physician. I agree with the documented findings, disposition and treatment plan as described except to the extent set forth below. Patient resisted ED with a chief complaint of left knee pain. Patient states it increased this afternoon. Patient has had troubles that she had a knee rep lacement in October. She has been on 4 different antibiotics. It was improved this morning while she has been on Keflex. She was sitting at lunch and noticed it became more painful. She looked and it was red. She comes for evaluation. On examination she has diffuse swelling of the left knee. The area laterally and inferiorly to knee is erythematous and warm. Plan. X-ray and labs. Sedimentation rate and white count normal. Patient discussed with orthopedics. Started on broad-spectrum antibiotics and admitted. Knee X-Ray 02/09/19 16:55 IMPRESSION: Status post left total knee arthroplasty without complications. Small knee joint effusion and prepatellar soft tissue edema. D/ / Jennifer Wasserman MD / Jennifer jones MD Interpreting Provider: Jennifer Wasserman MD
[2019-02-09] MEDS ORDERED: *HR* OxyCODONE Immed Rel 5 MG TABLET PO PRN (20:23)
[2019-02-09] MEDS ORDERED: Naloxone 0.4 MG/ML INJ IVP PRN (20:23)
[2019-02-09] MEDS ORDERED: Acetaminophen 325 MG TABLET PO PRN (20:23)
--- NOTE | 2019-02-09 20:46 | Internal Med History&Physical ---
Date of Encounter: 02/09/19 Time of Encounter: 20:45 Internal Medicine - H&P: HPI Chief complaint: left knee Admitted From: Home Plans for Post Hospital Care: Home History of present illness: Mari Escobar is an 83 year old woman with hypertension who underwent total left knee replacement in September 2018 and a month later developed inflammatory signs around the surgical site. She was placed on a short course of antibiotics by the orthopedics group with improvement noted. She continued to undergo physical rehab and about 2 weeks ago developed inflammatory signs again notable for pain, swelling and erythema. She again was placed on an oral course of antibiotics with no improvement and today developed acute pain and was unable to place pressure on the leg. She is admitted for further care. Vitals: Reviewed General: Well-appearing elderly woman lying in bed in no acute distress Skin: Warm and supple. HEENT: Moist mucous membranes. No conjunctivae pallor. Neck: No lymphadenopathy. No JVD. No carotid bruits. No palpable thyroid. Chest: Normal thoracic expansion. Normal breath sounds. Clear to auscultation. Heart: Normal S1 & S2; rhythmic. No rubs or murmurs. Abdomen: Non-distended, soft and non-tender to palpation. No peritoneal reaction. Extremities: Left knee circumferentially swollen and tender to palpation on its medial aspect. Notable erythema distal to the knee extending to the mid-tibial aspect extending laterally. Neurological: Awake, alert and oriented to person, place and time. No focal deficits. Psych: Affect appropriate. Assessment/Plan 1. Mild non-purulent cellulitis: While the patient has no systemic signs of illness such as fever, chills, leukocytosis and elevated acute phase reactants, the patient has not responded well to oral outpatient therapy. Will keep her on IV vancomycin for the time being in addition to leg elevation and cold compresses. While DVT has been ruled out, if there is no improvement in the next 24-48hrs she should undergo synovial joint aspiration. 2. Hypertension: Well controlled. Continue metoprolol. 3. Osteoporosis: On raloxifene. 4. DVT prophylaxis: SubQ heparin ordered. Past Med Surg Social Fam HX - Past Medical History Medical history: cancer, osteoporosis Additional medical history: breast CA, colon CA Psychiatric history: no psych history - Past Surgical History Surgical History: colectomy Additional surgical history: L mastectomy, foot surgery (torn tendon in arch) - Social History Smoking Status: Never smoker Smokeless Tobacco Status: No Alcohol use: none Drug use: none - Family History Father Living Status: Hx Family Cardiac Disorders: Yes Mother Living Status: Hx Family Cardiac Disorders: Yes (stroke) Hx Family Neurologic Disorders: Yes (CVA x2) Internal Medicine - H&P: Meds Calcium Carbonate/Vitamin D3 [Calcium 600-Vit D3 800 Tablet] 1 tab PO DAILY 04/05/18 [History] Multivit,Th Iron,Other Min [Therems-M] 1 tab PO DAILY 04/05/18 [History] Raloxifene [Evista] 60 mg PO DAILY 04/05/18 [History] Acetaminophen [Tylenol] 650 mg PO Q6HR PRN #30 tablet 04/08/18 [Rx] Biotin 1 mg PO DAILY 10/16/18 [History] Glucosamine Sulfate Dipot Chlr [Glucosamine] 1,000 mg PO DAILY 10/16/18 [History] Lysine HCl [l-Lysine] 500 mg PO DAILY 10/16/18 [History] Metoprolol Tartrate [Lopressor] 25 mg PO BID 10/26/18 [History] Allergy/AdvReac Type Severity Reaction Status Date / Time No Known Allergies Allergy Verified 10/16/18 12:00 All Systems PM: A 10-system review of systems was performed and is negative for pertinent findings except as documented above in the HPI. - Constitutional Vitals: Temp Pulse Resp BP Pulse Ox 98.0 F 94 16 134/67 100 02/09/19 16:10 02/09/19 19:35 02/09/19 19:35 02/09/19 19:35 02/09/19 19:35 Exam: . Internal Med - H&P Results - Labs CBC & Chem 7: 02/09/19 17:15 02/09/19 17:15 Labs: Short CBC 02/09/19 Range/Units 17:15 WBC 5.1 (4.3-11.1) K/mcL Hgb 11.4 L D (11.5-15.4) g/dL Hct 36.1 (35.3-44.9) % Plt Count 234 (140-400) K/mcL Neutrophils # 3.7 (1.6-8.9) K/mcL BMP 02/09/19 17:15 Sodium 136 Potassium 3.8 Chloride 99 Carbon Dioxide 30 H BUN 21 Creatinine 0.87 Glucose 111 H Calcium 9.2 - Impressions ITS Impressions Knee X-Ray 02/09/19 16:55 IMPRESSION: Status post left total knee arthroplasty without complications. Small knee joint effusion and prepatellar soft tissue edema. D/ / Jennifer Wasserman MD / Jennifer Wasserman MD Interpreting Provider: Jennifer Wasserman MD - Time Spent With Patient Total time spent is greater than 50% in coordination of care (as documented) at patient's floor/unit and/or counseling patient: Greater than 35 minutes
[2019-02-10] MEDS: *HR* Heparin 5,000 UNIT/ML VIAL SQ SCH ×4 (00:49→21:11)
[2019-02-10] MEDS: Cholecalciferol (D-3) 1,000 UNIT TABLET PO SCH (09:20)
--- NOTE | 2019-02-10 12:22 | Internal Med Progress Note ---
Hospitalist Progress Note - Encounter Date of Encounter: 02/10/19 Time of Encounter: 11:00 - Subjective Interval History: H&P reviewed. Patient with history of L total knee replacement 09/2018 complicated by few episodes of soft tissue infection was admitted for the concern of L LE cellulitis mostly on anterior palacio. Was recently started back on abx early this week but did not get better. She was started on IV Vanc overnight and is already seeing dramatic improvement in redness and pain. No fever overnight - Exam Vitals: Temp Pulse Resp BP Pulse Ox 98.2 F 70 17 128/70 97 02/10/19 08:27 02/10/19 08:27 02/10/19 08:27 02/10/19 08:27 02/10/19 08:27 Exam: Vitals: Reviewed General: Well-appearing elderly woman lying in bed in no acute distress Chest: Normal thoracic expansion. Normal breath sounds. Clear to auscultation. Heart: Normal S1 & S2; rhythmic. No rubs or murmurs. Abdomen: Non-distended, soft and non-tender to palpation. No peritoneal reaction . Extremities: L LE erythema and warmth just distal to the knee, extending to the mid-tibial aspect anteriorly. Significantly less than the demarcation drawn yesterday. Minimal tenderness, no fluctuance or obvious swelling noted. Neurological: No focal deficits. - Assessment and Plan (1) Cellulitis Current Visit: Yes Status: Acute Assessment and Plan: Patient had been repeatedly treated for soft tissue infection following the knee replacement back in September 2018 however, pt appears non-toxic, no fever, no leukocytosis, and without elevated ESR/CRP. Nevertheless, there had been significant clinical improvement on IV Vancomycin hence will continue for today Pt has bone scan scheduled on Tuesday followed by outpt orthopedic appt next week. Should be able to discharge by tomorrow and keep the appointment (2) HTN (hypertension) Current Visit: No Status: Chronic Assessment and Plan: Resume home meds (3) DVT prophylaxis Current Visit: No Status: Acute Assessment and Plan: Subcutaneous heparin - Time Spent with Patient Total time spent is greater than 50% in coordination of care (as documented) at patient's floor/unit and/or counseling patient: 25 - 35 minutes Plan of Care Discussed with: patient Internal Medicine: Result - Labs CBC & Chem 7: 02/09/19 17:15 02/09/19 17:15 Labs: Short CBC 02/09/19 Range/Units 17:15 WBC 5.1 (4.3-11.1) K/mcL Hgb 11.4 L D (11.5-15.4) g/dL Hct 36.1 (35.3-44.9) % Plt Count 234 (140-400) K/mcL Neutrophils # 3.7 (1.6-8.9) K/mcL BMP 02/09/19 17:15 Sodium 136 Potassium 3.8 Chloride 99 Carbon Dioxide 30 H BUN 21 Creatinine 0.87 Glucose 111 H Calcium 9.2 - Impressions Impressions Knee X-Ray 02/09/19 16:55 IMPRESSION: Status post left total knee arthroplasty without complications. Small knee joint effusion and prepatellar soft tissue edema. D/ / Jennifer Wasserman MD / Jennifer Wasserman MD Interpreting Provider: Jennifer Wasserman MD Consult Discharge Plan - Plan Referrals: Kalyan Hinton DO [Primary Care Provider] - (1) Cellulitis Qualifiers: Site of cellulitis: extremity Site of cellulitis of extremity: lower extremity Laterality: left Qualified Code(s): L03.116 - Cellulitis of left lower limb (2) HTN (hypertension) Qualifiers: Hypertension type: essential hypertension Qualified Code(s): I10 - Essential (primary) hypertension
[2019-02-10] MEDS: traMADol 50 MG TABLET PO PRN (17:07)
--- NOTE | 2019-02-10 17:09 | Orthopedic Consult Note ---
Date of Encounter: 02/10/19 Time of Encounter: 17:07 Assessment and Plan (1) Cellulitis of left knee Current Visit: Yes Status: Acute The patient is responding well to the IV antibiotics. Continue elevation and continue IV antibiotics. Discussed the patient recommend to ambulate and trying to do range of motion exercises of the knee. The patient does have a bone scan test for Tuesday morning at 8 AM, we will see if she can be discharged prior for the outpatient test. Repeat labs tomorrow. History of Present Illness Chief complaint: Left knee swelling and erythema HPI: Ms. Escobar is a 83 year old female with history of a left total knee arthroplasty on 10/16/[address] Motley. The patient has had some swelling to the knee and was placed on oral antibiotics. She was also scheduled to have a bone scan done on Tuesday. On Tuesday the patient had increased swelling with erythema from the knee down to the ankle, and she went to the emergency room. The patient was admitted with cellulitis, and placed on IV antibiotics overnight. She reports that the leg does feel better today. Yesterday she is able to bend the knee at all and can partially bend it today. She denies any fevers or chills. Past Med Surg Social Fam HX - Past Medical History Medical history: cancer, osteoporosis Additional medical history: breast CA, colon CA Psychiatric history: no psych history - Past Surgical History Surgical History: appendectomy, orthopedic, other Additional surgical history: L mastectomy, foot surgery (torn tendon in arch). colon resection. Tubal - Social History Smoking Status: Never smoker Smokeless Tobacco Status: No Alcohol use: none Drug use: none - Family History Father Living Status: Hx Family Cardiac Disorders: Yes Mother Living Status: Hx Family Cardiac Disorders: Yes (stroke) Hx Family Neurologic Disorders: Yes (CVA x2) Medications and Allergies Calcium Carbonate/Vitamin D3 [Calcium 600-Vit D3 800 Tablet] 1 tab PO DAILY 04/05/18 [History] Multivit,Th Iron,Other Min [Therems-M] 1 tab PO DAILY 04/05/18 [History] Raloxifene [Evista] 60 mg PO DAILY 04/05/18 [History] Biotin 1 mg PO DAILY 10/16/18 [History] Glucosamine Sulfate Dipot Chlr [Glucosamine] 1,000 mg PO DAILY 10/16/18 [History] Lysine HCl [l-Lysine] 500 mg PO DAILY 10/16/18 [History] Doxycycline Hyclate 100 mg PO BID 02/10/19 [History] Metoprolol [Lopressor] 25 mg PO BID 02/10/19 [History] Allergy/AdvReac Type Severity Reaction Status Date / Time No Known Allergies Allergy Verified 02/10/19 16:38 All Systems Reviewed: The remainder of the systems were reviewed and are negative Physical Exam - Constitutional Vitals: Temp Pulse Resp BP Pulse Ox 98.2 F 70 17 128/70 97 02/10/19 08:27 02/10/19 08:27 02/10/19 08:27 02/10/19 08:27 02/10/19 08:27 General appearance IM: A&O X 3, no acute distress, answers questions appropriately Exam: Left lower extremity: There is a marker, marking off the area of erythema from the ER yesterday. This area is smaller, especially distally. There is some swelling anterior knee. Incision is well-healed. There is only warmth on the lateral aspect of the knee, the rest of the leg feels cold to the touch. There is no fluctuance or crepitus of the skin. Knee range of motion is still limited but improved according to patient. Posterior calf is soft and nontender. She is grossly varus intact distally. Results - Labs Result Diagrams: 02/09/19 17:15 02/09/19 17:15 Labs: Abnormal lab results RBC 3.76 M/mcL (3.82-4.97) L 02/09/19 17:15 Hgb 11.4 g/dL (11.5-15.4) L D 02/09/19 17:15 Carbon Dioxide 30 mEq/L (23-29) H 02/09/19 17:15 Glucose 111 mg/dL (70-105) H 02/09/19 17:15 H & H 02/09/19 Range/Units 17:15 Hgb 11.4 L D (11.5-15.4) g/dL Hct 36.1 (35.3-44.9) % All other labs normal. - Diagnostic results Knee x-ray: image reviewed (Implants intact, anterior swelling) Consult Discharge Plan - Plan Referrals: Kalyan Hinton DO [Primary Care Provider] -
[2019-02-11] MEDS: traMADol 50 MG TABLET PO PRN ×2 (00:46→08:33)
[2019-02-11] MEDS: *HR* Heparin 5,000 UNIT/ML VIAL SQ SCH ×3 (06:22→21:25)
[2019-02-11 07:59] LABS: Basophils % 0.4 %; Eosinophils # 0.1 K/mcL (0.0-0.6); Eosinophils % 2.8 %; Hematocrit 35.1 % (35.3-44.9); Immature Granulocytes % 0.4 % (0-4); Lymphocytes # 1.1 K/mcL (0.6-4.6); Lymphocytes % 21.7 %; Mean Corpuscular HGB Conc 31.3 g/dL (31.6-35.5); Mean Corpuscular Hemoglobin 30.4 pg (28.0-33.3); Mean Platelet Volume 9.7 fL (9.4-12.4); Monocytes # 0.6 K/mcL (0.0-1.3); Monocytes % 11.5 %; Neutrophils # 3.2 K/mcL (1.6-8.9); Platelet Count 198 K/mcL (140-400); Red Blood Count 3.62 M/mcL (3.82-4.97); Red Cell Distribution Width 13.2 % (11.5-14.5); Segmented Neutrophils % 63.2 %
[2019-02-11 08:20] LABS: BUN/Creatinine Ratio 27 (6-26); Blood Urea Nitrogen 16 mg/dL (8-23); Calcium 8.4 mg/dL (8.6-10.3); Carbon Dioxide 27 mEq/L (23-29); Chloride 103 mEq/L (98-107); Glucose 92 mg/dL (70-105); Osmolality,Calculated 281 (280-300); Potassium 4.1 mEq/L (3.5-5.1); Sodium 135 mEq/L (136-145); eGFR For African Americans > 60 (> 60); eGFR For Non-African Americans > 60 (> 60)
[2019-02-11] MEDS: Cholecalciferol (D-3) 1,000 UNIT TABLET PO SCH (08:29)
[2019-02-11] MEDS ORDERED: Ondansetron 4 MG/2 ML VIAL IVP PRN (09:52)
--- NOTE | 2019-02-11 11:49 | Internal Med Progress Note ---
Hospitalist Progress Note - Encounter Date of Encounter: 02/11/19 Time of Encounter: 10:30 - Subjective Interval History: Patient denies any worsening pain but the area of redness is noted to be slightly larger today. She also states that her pain is mostly along the medial aspect of the knee rather than the area of redness. No fever/chills or N/V. - Exam Vitals: Temp Pulse Resp BP Pulse Ox 98 F 89 14 118/69 96 02/11/19 07:45 02/11/19 07:45 02/11/19 07:45 02/11/19 07:45 02/11/19 08:42 Exam: Vitals: Reviewed General: Well-appearing elderly woman lying in bed in no acute distress Chest: Normal thoracic expansion. Normal breath sounds. Clear to auscultation. Heart: Normal S1 & S2; rhythmic. No rubs or murmurs. Abdomen: Non-distended, soft and non-tender to palpation. No peritoneal reaction. Extremities: L LE erythema and warmth just distal to the knee, extending to the mid-tibial aspect anteriorly. Only partially blanchable. Non-tender to palpati on, no fluctuance or obvious swelling noted. Fullness of the medial aspect of L knee noted and also mildly tender to palpation there. Neurological: No focal deficits. - Assessment and Plan (1) Cellulitis Current Visit: Yes Status: Acute Assessment and Plan: Patient had been repeatedly treated for soft tissue infection following the knee replacement back in September 2018 however, pt appears non-toxic, no fever, no leukocytosis, and without elevated ESR/CRP. the lesion is also not tender and only partially blanchable ?underlying ecchymosis. She also has multiple telangiectasias on R LE Pt has bone scan scheduled for tomorrow as an outpatient. Would continue abx till the scan. Discussed with Orthopedics PT/OT (2) HTN (hypertension) Current Visit: No Status: Chronic Assessment and Plan: Resume home meds (3) DVT prophylaxis Current Visit: No Status: Acute Assessment and Plan: Subcutaneous heparin - Time Spent with Patient Total time spent is greater than 50% in coordination of care (as documented) at patient's floor/unit and/or counseling patient: 25 - 35 minutes Plan of Care Discussed with: patient (discussed with orthopedics and charge nurse regarding bone scan tomorrow) Internal Medicine: Result - Labs CBC & Chem 7: 02/11/19 07:27 02/11/19 07:27 Labs: Short CBC 02/11/19 Range/Units 07:27 WBC 5.0 (4.3-11.1) K/mcL Hgb 11.0 L (11.5-15.4) g/dL Hct 35.1 L (35.3-44.9) % Plt Count 198 (140-400) K/mcL Neutrophils # 3.2 (1.6-8.9) K/mcL BMP 02/11/19 07:27 Sodium 135 L Potassium 4.1 Chloride 103 Carbon Dioxide 27 BUN 16 Creatinine 0.59 L Glucose 92 Calcium 8.4 L Consult Discharge Plan - Plan Referrals: Kalyan Hinton DO [Primary Care Provider] - (1) Cellulitis Qualifiers: Site of cellulitis: extremity Site of cellulitis of extremity: lower extremity Laterality: left Qualified Code(s): L03.116 - Cellulitis of left lower limb (2) HTN (hypertension) Qualifiers: Hypertension type: essential hypertension Qualified Code(s): I10 - Essential (primary) hypertension
--- NOTE | 2019-02-11 15:21 | Orthopedics Progress Note ---
Date of Encounter: 02/11/19 Time of Encounter: 15:18 - Assessment and Plan (1) Cellulitis of left knee Current Visit: Yes Status: Acute Subjective Principal diagnosis: Left painful total knee arthroplasty with possible cellulitis Interval history: The patient still reports pain in the knee, but the overall leg feels better Left lower extremity: Mild anterior swelling, the erythema has extended back at the black line was drawn from admission, she does have blanching erythema, there is warmth on the lateral aspect of the knee, range of motion is still limited Assessment: Patient clinically appears to have a cellulitis although her lab markers are completely normal. She still has pain within the knee. Plan: Continue IV and observation Patient has a 3-phase bone scan scheduled for tomorrow, will try to convert to inpatient status of the test Objective Vital signs: Vital Signs Temp Pulse Resp BP Pulse Ox 02/11/19 12:13 98.3 F 61 16 128/84 95 02/11/19 08:42 96 02/11/19 07:45 98 F 89 14 118/69 96 02/11/19 04:29 97.7 F 83 18 114/65 99 02/11/19 02:00 63 139/72 02/10/19 22:22 98.1 F 73 18 127/68 95 02/10/19 21:02 98.5 F 71 18 126/57 96 Intake and Output 02/10/19 02/11/19 02/11/19 23:59 07:59 15:59 Intake Total 0 / 600 600 / 1200 600 / 1200 Output Total 0 / 0 0 / 200 200 / 200 Balance 0 / 600 600 / 1000 400 / 1000 Intake: Oral 0 / 600 600 / 1200 600 / 1200 Output: Urine 0 / 0 0 / 200 200 / 200 Other: Meal Lunch Percent of Meal Consumed 95% # Voids 1 1 1 Weight 60.58 kg Patient Weight 02/11/19 23:59 Weight 60.58 kg - Labs CBC & BMP: 02/11/19 07:27 02/11/19 07:27 Labs: Abnormal lab results RBC 3.62 M/mcL (3.82-4.97) L 02/11/19 07:27 Hgb 11.0 g/dL (11.5-15.4) L 02/11/19 07:27 Hct 35.1 % (35.3-44.9) L 02/11/19 07:27 MCHC 31.3 g/dL (31.6-35.5) L 02/11/19 07:27 Sodium 135 mEq/L (136-145) L 02/11/19 07:27 Carbon Dioxide 30 mEq/L (23-29) H 02/09/19 17:15 0.59 mg/dL (0.60-1.20) L 02/11/19 07:27 27 (6-26) H 02/11/19 07:27 Glucose 111 mg/dL (70-105) H 02/09/19 17:15 Calcium 8.4 mg/dL (8.6-10.3) L 02/11/19 07:27 Consult Discharge Plan - Plan Referrals: Kalyan Hinton DO [Primary Care Provider] -
[2019-02-12] MEDS: traMADol 50 MG TABLET PO PRN (03:54)
[2019-02-12] MEDS: *HR* Heparin 5,000 UNIT/ML VIAL SQ SCH ×2 (06:09→16:21)
[2019-02-12 06:48] LABS: Hematocrit 33.6 % (35.3-44.9); Hemoglobin 10.7 g/dL (11.5-15.4); Mean Corpuscular HGB Conc 31.8 g/dL (31.6-35.5); Mean Corpuscular Hemoglobin 31.1 pg (28.0-33.3); Mean Corpuscular Volume 97.7 fL (83.0-100.0); Mean Platelet Volume 9.5 fL (9.4-12.4); Platelet Count 195 K/mcL (140-400); Red Blood Count 3.44 M/mcL (3.82-4.97); Red Cell Distribution Width 13.2 % (11.5-14.5); White Blood Count 4.9 K/mcL (4.3-11.1)
[2019-02-12 07:08] LABS: BUN/Creatinine Ratio 25 (6-26); Blood Urea Nitrogen 15 mg/dL (8-23); Calcium 8.4 mg/dL (8.6-10.3); Carbon Dioxide 27 mEq/L (23-29); Chloride 102 mEq/L (98-107); Glucose 97 mg/dL (70-105); Osmolality,Calculated 283 (280-300); Sodium 136 mEq/L (136-145); eGFR For African Americans > 60 (> 60); eGFR For Non-African Americans > 60 (> 60)
[2019-02-12] MEDS: Cholecalciferol (D-3) 1,000 UNIT TABLET PO SCH (08:01)
[2019-02-12 10:57] VITALS: BP 100/62
--- NOTE | 2019-02-12 14:21 | Discharge Summary ---
- NOTES TO OUTPATIENT PROVIDER Notes to Outpatient Provider: Follow up with orthopedic surgery Orders not resulted at time of discharge: Pending orders 02/09/19 22:22 Culture,Blood [BC] Routine Date of Encounter: 02/12/19 Time of Encounter: 10:45 - Discharge Diagnosis (1) Cellulitis Priority: Primary Status: Acute Qualifiers: Site of cellulitis: extremity Site of cellulitis of extremity: lower extremity Laterality: left Qualified Code(s): L03.116 - Cellulitis of left lower limb (2) HTN (hypertension) Priority: Secondary Status: Chronic Qualifiers: Hypertension type: essential hypertension Qualified Code(s): I10 - Essential (primary) hypertension (3) DVT prophylaxis Priority: Secondary Status: Acute Hospital course: Ms. 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 Pt had been on cephalexin followed by Doxycycline for 2 days prior to the presentation. However, pt did not have any fever, leukocytosis, and ESR/CRP/procalcitonin were all normal. Her physical exam findings were also variable while on IV Vancomycin. ?ecchymosis from telangiectasia. She had bone scan scheduled as an outpatient on 02/11 which was performed during her stay: reviewed the findings with Orthopedic surgery who felt that she could follow up as outpatient to discuss the next step in management. She will be discharged with home health service and to complete the course of doxycycline that was given by the orthopedic team. Discharge discussed with: patient, nurse, social work, oracle database consultant - Time Spent with Patient Total time spent providing and/or coordinating discharge services: 33 mins - Discharge Medications Prescriptions: New Acetaminophen [Tylenol] 650 mg PO Q6HR PRN #30 tablet PRN Reason: Pain Continued Raloxifene [Evista] 60 mg PO DAILY Calcium Carbonate/Vitamin D3 [Calcium 600-Vit D3 800 Tablet] 1 tab PO DAILY Multivit,Th Iron,Other Min [Therems-M] 1 tab PO DAILY Lysine HCl [l-Lysine] 500 mg PO DAILY Glucosamine Sulfate Dipot Chlr [Glucosamine] 1,000 mg PO DAILY Biotin 1 mg PO DAILY Doxycycline Hyclate 100 mg PO BID Metoprolol [Lopressor] 25 mg PO BID Home Medications: Calcium Carbonate/Vitamin D3 [Calcium 600-Vit D3 800 Tablet] 1 tab PO DAILY 04/05/18 [History] Multivit,Th Iron,Other Min [Therems-M] 1 tab PO DAILY 04/05/18 [History] Raloxifene [Evista] 60 mg PO DAILY 04/05/18 [History] Biotin 1 mg PO DAILY 10/16/18 [History] Glucosamine Sulfate Dipot Chlr [Glucosamine] 1,000 mg PO DAILY 10/16/18 [History] Lysine HCl [l-Lysine] 500 mg PO DAILY 10/16/18 [History] Doxycycline Hyclate 100 mg PO BID 02/10/19 [History] Metoprolol [Lopressor] 25 mg PO BID 02/10/19 [History] Acetaminophen [Tylenol] 650 mg PO Q6HR PRN #30 tablet 02/12/19 [Rx] Allergies/Adverse Reactions: Allergy/AdvReac Type Severity Reaction Status Date / Time No Known Allergies Allergy Verified 02/10/19 16:38 Date of admission: 02/09/19 20:24 Primary care physician: Kalyan Hinton Consults: 02/09/19 22:46 Consult to Nutrition [CONS] Routine Comment: Consulting Provider: NUTRITION Reason for Dietary Consult: MST Score Consult to Pastoral Services [CONS] Routine Comment: 02/10/19 07:57 Consult to Occupational Therapy [CONS] Routine Comment: Evaluate, develop and implement POC Reason for Consult: L TKR, cellulitis Does patient have active BEDREST order?: No Is patient medically & hemodynamically stable?: Yes Consult to Physical Therapy [CONS] Routine Comment: Evaluate, develop and implement POC Reason for Consult: L TKR, cellulitis Does patient have active BEDREST order?: No Is patient medically & hemodynamically stable?: Yes 02/12/19 11:17 Consult to Medical Technologist Microbiology [CONS] Routine Reason for SW Consult: Discharge Planning 02/12/19 11:23 Consult to Orthopedic Surgery [CONS] Routine Consulting Provider: [facility] Reason for Consult: hx of L TKR, ?loosening Call Completed: Yes - Constitutional Vitals: Temp Pulse Resp BP Pulse Ox 98.5 F 80 16 100/62 95 02/12/19 10:56 02/12/19 10:56 02/12/19 10:56 02/12/19 10:56 02/12/19 10:56 Exam: Vitals: Reviewed General: Well-appearing elderly woman lying in bed in no acute distress Chest: Normal thoracic expansion. Normal breath sounds. Clear to auscultation. Heart: Normal S1 & S2; rhythmic. No rubs or murmurs. Abdomen: Non-distended, soft and non-tender to palpation. No peritoneal r eaction. Extremities: Stable L LE erythema distal to the knee, extending to the mid- tibial aspect anteriorly. Only partially blanchable. Non-tender to palpation, no fluctuance or obvious swelling noted. Fullness of the medial aspect of L knee noted and also mildly tender to palpation there. Neurological: No focal deficits. - Patient Status Disposition: Home Health Service Condition: Fair Overall status at discharge: patient is progressing back to baseline - Discharge Instructions Instructions: Cellulitis (DC), Chronic Hypertension (DC) Follow Up With: Kalyan Hinton DO [Primary Care Provider] - Rich Motley MD [Partnered Physician] - - Diet and Activity Activity: as per physical therapy Diet: regular diet
--- NOTE | 2019-02-12 14:37 | Physician Discharge Referral ---
Home Health/Hosp Referral Info Transfer to: Home Health Provider in Charge Post Discharge: PCP - Diagnosis (1) Cellulitis Priority: Primary Status: Acute (2) HTN (hypertension) Priority: Secondary Status: Chronic (3) DVT prophylaxis Priority: Secondary Status: Acute - Respiratory Orders Smoking Cessation: Smoking cessation has been advised. For more information, call the [place] Tobacco Quit Line at 3-701-IYUR-NOW. - Diet/Nutrition Diet/Nutrition Orders: Regular - Services Needed Following services are medically necessary services: Nursing, Home Health Aide, Physical Therapy, Occupational Therapy - Transfer Medications Prescriptions: Acetaminophen [Tylenol] 650 mg PO Q6HR PRN #30 tablet PRN Reason: Pain Home Medications: Calcium Carbonate/Vitamin D3 [Calcium 600-Vit D3 800 Tablet] 1 tab PO DAILY 04/05/18 [History] Multivit,Th Iron,Other Min [Therems-M] 1 tab PO DAILY 04/05/18 [History] Raloxifene [Evista] 60 mg PO DAILY 04/05/18 [History] Biotin 1 mg PO DAILY 10/16/18 [History] Glucosamine Sulfate Dipot Chlr [Glucosamine] 1,000 mg PO DAILY 10/16/18 [History] Lysine HCl [l-Lysine] 500 mg PO DAILY 10/16/18 [History] Doxycycline Hyclate 100 mg PO BID 02/10/19 [History] Metoprolol [Lopressor] 25 mg PO BID 02/10/19 [History] Acetaminophen [Tylenol] 650 mg PO Q6HR PRN #30 tablet 02/12/19 [Rx] Allergies/Adverse Reactions: Allergy/AdvReac Type Severity Reaction Status Date / Time No Known Allergies Allergy Verified 02/10/19 16:38 Certification: Further, I certify that my clinical findings support that this patient is homebound (i.e. absences from home require considerable and taxing effort and are for medical reasons or voodoo services or infrequently or short duration when for other reasons) because: Homebound Reason: Patient requires assistance of a person or device to safely leave home Attestation: My signature below is to certify that this patient is under my care and that I, or nurse practitioner, or a physician's editorial assistant working with me, has a [id number] encounter with this patient.
[2019-02-12] MEDS ORDERED: Aminoglycoside Consult 1 EACH MC ONE (16:48)
== END 2019-02-12 16:49 | disposition home health service (06) | DRG 603 ==
LOC: EMEROOARM 16:09 → 3NENU 16:09 → SUATTDRO 20:24 → 3NENU 21:15
PROVIDERS: ADMIT Internal Medicine; ATTEND Internal Medicine

== ENCOUNTER 2021-12-05 10:55 | Inpatient (IN) ==
[2021-12-05 11:57] LABS: Bilirubin,Urine Negative (Negative); Blood,Urine Negative (Negative); Clarity,Urine Clear (Clear); Color,Urine Light-Yellow (Yellow); Glucose,Urine (UA) Normal (Normal); Hyaline Casts,Urine Few per lpf (None Seen); Ketones,Urine Negative (Negative); Leukocyte Esterase,Urine Moderate (Negative); Mucus,Urine Few per lpf (None-Few); Nitrite,Urine Negative (Negative); PH,Urine 6.5 pH Units (5.0-8.0); Protein,Urine Trace mg/dL (Neg-Trace); Specific Gravity,Urine 1.019 (1.010-1.025); Squamous Epithelial Cell,Urine Few per hpf (None-Few); Urobilinogen,Urine Normal (Normal)
[2021-12-05 11:59] LABS: Basophils % 0.5 %; Eosinophils # 0.1 K/mcL (0.0-0.6); Eosinophils % 1.2 %; Hemoglobin 12.3 g/dL (11.5-15.4); Lymphocytes # 0.8 K/mcL (0.6-4.6); Lymphocytes % 13.8 %; Mean Corpuscular HGB Conc 32.4 g/dL (31.6-35.5); Mean Corpuscular Hemoglobin 31.3 pg (28.0-33.3); Mean Corpuscular Volume 96.7 fL (83.0-100.0); Mean Platelet Volume 9.3 fL (9.4-12.4); Monocytes # 0.4 K/mcL (0.0-1.3); Monocytes % 6.7 %; Neutrophils # 4.7 K/mcL (1.6-8.9); Platelet Count 242 K/mcL (140-400); Red Blood Count 3.93 M/mcL (3.82-4.97); Red Cell Distribution Width 13.3 % (11.5-14.5); Segmented Neutrophils % 76.8 %; White Blood Count 6.1 K/mcL (4.3-11.1)
[2021-12-05 12:15] LABS: Alanine Aminotransferase 14 Units/L (7-52); Albumin 3.9 g/dL (3.5-5.7); Albumin/Globulin Ratio 1.3 (1.1-2.2); Alkaline Phosphatase 65 Units/L (34-104); Aspartate Amino Transferase 17 Units/L (13-39); BUN/Creatinine Ratio 28 (6-26); Bilirubin,Total 1.3 mg/dL (0.3-1.0); Blood Urea Nitrogen 24 mg/dL (8-23); Calcium 9.5 mg/dL (8.6-10.3); Carbon Dioxide 25 mEq/L (23-29); Chloride 103 mEq/L (98-107); Globulin 2.9 g/dL (2.4-3.5); Glucose 85 mg/dL (70-105); Osmolality,Calculated 287 (280-300); Potassium 4.5 mEq/L (3.5-5.1); Sodium 137 mEq/L (136-145); Total Protein 6.8 g/dL (6.4-8.9); Troponin I < 0.03 ng/mL (< 0.04); eGFR For African Americans > 60 (> 60); eGFR For Non-African Americans > 60 (> 60)
[2021-12-05] MEDS ORDERED: Isovue-370 500 ML BOTTLE IVP ONE (12:28)
[2021-12-05] MEDS ORDERED: Aspirin 325 MG TABLET PO ONE (13:26)
[2021-12-05] MEDS ORDERED: Naloxone 0.4 MG/ML INJ IVP PRN (14:04)
[2021-12-05] MEDS ORDERED: Perflutren Lipid Microsphere 1.3 ML in 0.9 % Sodium Chloride 8.7 ML IVP PRN (15:03)
[2021-12-05] MEDS ORDERED: Acetaminophen 325 MG TABLET PO PRN (15:04)
[2021-12-05] MEDS ORDERED: Melatonin 3 MG TABLET PO PRN (15:04)
[2021-12-05] MEDS ORDERED: 0.9 % Sodium Chloride 1,000 ML IVC SCH (15:15)
[2021-12-05] MEDS: *HR* Heparin 5,000 UNIT/ML VIAL SQ SCH (16:52)
[2021-12-05] MEDS: cefTRIAXone 1,000 MG in 0.9 % Sodium Chloride 10 ML IVP SCH (17:03)
[2021-12-06 02:08] LABS: Basophils % 0.3 %; Eosinophils # 0.1 K/mcL (0.0-0.6); Eosinophils % 2.4 %; Hematocrit 32.7 % (35.3-44.9); Immature Granulocytes % 0.3 % (0-4); Lymphocytes # 1.4 K/mcL (0.6-4.6); Lymphocytes % 23.9 %; Mean Corpuscular HGB Conc 32.7 g/dL (31.6-35.5); Mean Corpuscular Hemoglobin 31.6 pg (28.0-33.3); Mean Corpuscular Volume 96.5 fL (83.0-100.0); Mean Platelet Volume 10.1 fL (9.4-12.4); Monocytes # 0.6 K/mcL (0.0-1.3); Monocytes % 9.7 %; Neutrophils # 3.7 K/mcL (1.6-8.9); Platelet Count 215 K/mcL (140-400); Red Blood Count 3.39 M/mcL (3.82-4.97); Red Cell Distribution Width 13.5 % (11.5-14.5); Segmented Neutrophils % 63.4 %; White Blood Count 5.8 K/mcL (4.3-11.1)
[2021-12-06 02:14] LABS: Hemoglobin 10.7 g/dL (11.5-15.4)
[2021-12-06 02:30] LABS: BUN/Creatinine Ratio 32 (6-26); Blood Urea Nitrogen 22 mg/dL (8-23); Calcium 8.5 mg/dL (8.6-10.3); Carbon Dioxide 24 mEq/L (23-29); Chloride 106 mEq/L (98-107); Chol/HDL Ratio 2.2 (0-4.9); Cholesterol 108 mg/dL (< 200); Glucose 84 mg/dL (70-105); HDL Cholesterol 49 mg/dL (40-59); LDL Cholesterol,Calculated 49 mg/dL (< 100); Osmolality,Calculated 285 (280-300); Potassium 3.9 mEq/L (3.5-5.1); Sodium 136 mEq/L (136-145); Triglycerides 52 mg/dL (< 150); eGFR For African Americans > 60 (> 60); eGFR For Non-African Americans > 60 (> 60)
[2021-12-06 03:17] LABS: Estimated Average Glucose 108 mg/dl; Hemoglobin A1C 5.4 %
[2021-12-06] MEDS: *HR* Heparin 5,000 UNIT/ML VIAL SQ SCH ×2 (05:39→17:10)
[2021-12-06] MEDS: Multivit/Ca/Min/Fe/FA 1 TAB TABLET PO SCH (08:39)
[2021-12-06] MEDS: cefTRIAXone 1,000 MG in 0.9 % Sodium Chloride 10 ML IVP SCH (08:39)
[2021-12-06] MEDS: Aspirin Enteric Coated 81 MG Tablet PO SCH (08:40)
[2021-12-07] MEDS: *HR* Heparin 5,000 UNIT/ML VIAL SQ SCH ×2 (05:32→18:03)
[2021-12-07] MEDS: Aspirin Enteric Coated 81 MG Tablet PO SCH (09:22)
[2021-12-07] MEDS: Multivit/Ca/Min/Fe/FA 1 TAB TABLET PO SCH (09:22)
[2021-12-08] MEDS: *HR* Heparin 5,000 UNIT/ML VIAL SQ SCH ×2 (05:43→17:04)
[2021-12-08] MEDS: Aspirin Enteric Coated 81 MG Tablet PO SCH (08:54)
[2021-12-08] MEDS: Multivit/Ca/Min/Fe/FA 1 TAB TABLET PO SCH (08:55)
[2021-12-08 13:46] LABS: Influenza A PCR Negative (Negative); Influenza B PCR Negative (Negative); Resp. Syncytial Virus PCR Negative (Negative)
[2021-12-08 14:38] LABS: SARS-CoV-2 by PCR (In House) Negative (Negative)
[2021-12-09] MEDS: *HR* Heparin 5,000 UNIT/ML VIAL SQ SCH (05:55)
[2021-12-09] MEDS: Aspirin Enteric Coated 81 MG Tablet PO SCH (09:07)
[2021-12-09] MEDS: Multivit/Ca/Min/Fe/FA 1 TAB TABLET PO SCH (09:07)
[2021-12-09 12:47] LABS: Influenza A PCR Negative (Negative); Influenza B PCR Negative (Negative); Resp. Syncytial Virus PCR Negative (Negative)
[2021-12-09 12:48] LABS: SARS-CoV-2 by PCR (In House) Negative (Negative)
[2021-12-09 15:11] VITALS: BP 109/68; PULSE 76; TEMP 98.3; O2SAT 99
== END 2021-12-09 16:04 | DRG 69 ==
LOC: 3BNU 10:55 → EMEROOARM 10:55 → 3BNU 15:06 → SUATTDRO 12-06 13:18
PROVIDERS: ADMIT Internal Medicine; ATTEND Nurse Practitioner